=== PATIENT | female | born 1985 | race Hispanic/Latino ===

== ENCOUNTER 2016-12-25 16:20 | Emergency (ER) | payer SELFPAY ==
[~2016-12-25] VITALS: Ht 157.5 cm; Wt 77.0 kg
[~2016-12-25 16:20] MED LIST: IBUPROFEN600 MG PO; KEFLEX500 MG PO; LORTAB 5-325 MG1 TAB PO; LORTAB 7.57.5 MG PO; LORTAB5 OR; MACROBID100 MG OR; MOTRIN800 MG PO; NAPROSYN500 MG OR; NO HOME MEDS; PRENATA4 PO; PRENATAL1 TAB OR; PREVACID30 M2 PO; PROTONIX40 MG PO; TRAMADOL HCL50 MG OR; ULTRAM50 MG OR; ZOFRAN ODT4 MG OR
[2016-12-25 17:10] LABS: HEMATOCRIT 38.8 % (37.0-47.0); HEMOGLOBIN 13.4 g/dl (12.0-16.0); IMMATURE GRANULOCYTES 0.5 % (0.0-1.0); MEAN CELL VOLUME 84.3 fL CALC (80.0-100.0); MEAN CORPUSCULAR HGB 29.1 pG CALC (26.0-32.0); MEAN CORPUSCULAR HGB CONC 34.5 g/L CALC (32.0-36.0); NEUT# 4.15 thou/uL (2.00-7.15); RED BLOOD COUNT 4.6 mill/uL (4.20-5.60); RED CELL DISTRI WIDTH 12.2 % (11.5-15.5)
[2016-12-25 17:16] LABS: ALBUMIN 4.7 g/dL (3.2-5.0); ALKALINE PHOSPHATASE 109 u/l (38-126); ANION GAP 17 (6-22 (CALC)); BILIRUBIN, TOTAL 0.3 mg/dL (0.0-1.4); BUN 12 mg/dL (7-17); BUN/CREATININE RATIO 26 (12-20 (CALC)); CARBON DIOXIDE 24 mmol/l (22-30); CHLORIDE 102 mmol/l (95-108); CREATININE 0.5 mg/dL (0.5-1.0); GFR > 60 ML/MIN (>=60 (CALC)); GFR FOR AFR.AMER. > 60 ML/MIN (>=60 (CALC)); GLUCOSE 93 mg/dL (65-105); POTASSIUM 3.7 mmol/l (3.5-5.1); SGOT/AST 49 u/l (14-36); SGPT/ALT 30 u/l (9-52); SODIUM 139 mmol/l (137-146); TOTAL PROTEIN 8.2 g/dL (6.3-8.2)
[2016-12-25 17:27] LABS: MYOGLOBIN 13 ng/mL (0 - 62)
[2016-12-25] MEDS ORDERED: NAPROSYN500 MG PO (17:38)
[2016-12-25] MEDS ORDERED: FLEXERIL PO (17:38)
[2016-12-25 17:45] VITALS: BP 104/70
== END 2016-12-25 17:49 | disposition home or self-care (01) | DRG 313 ==
LOC: ED 16:20
PROVIDERS: Emergency Medicine
DX: R07.89 Other chest pain (principal)

== ENCOUNTER 2017-11-25 19:18 | Emergency (ER) | payer SELFPAY ==
[~2017-11-25] VITALS: Ht 157.5 cm; Wt 81.0 kg
[~2017-11-25 19:18] MED LIST changes: +FLEXERIL PO; +NAPROSYN500 MG PO
[2017-11-25 20:03] LABS: HEMATOCRIT 39.4 % (37.0-47.0); HEMOGLOBIN 13.2 g/dl (12.0-16.0); IMMATURE GRANULOCYTES 0.3 % (0.0-1.0); MEAN CELL VOLUME 87.6 fL CALC (80.0-100.0); MEAN CORPUSCULAR HGB 29.3 pG CALC (26.0-32.0); MEAN CORPUSCULAR HGB CONC 33.5 g/L CALC (32.0-36.0); NEUT# 3.46 thou/uL (2.00-7.15); RED BLOOD COUNT 4.5 mill/uL (4.20-5.60); RED CELL DISTRI WIDTH 12.6 % (11.5-15.5)
[2017-11-25 20:05] LABS: URINE BILIRUBIN - DIPSTICK NEGATIVE (NEGATIVE); URINE BLOOD DIPSTICK NEGATIVE (NEGATIVE); URINE CLARITY CLEAR; URINE COLOR YELLOW; URINE GLUCOSE - DIPSTICK NEGATIVE (NEGATIVE); URINE KETONE NEGATIVE (NEGATIVE); URINE LEUK ESTERASE NEGATIVE (NEGATIVE); URINE NITRITE - DIPSTICK NEGATIVE (Negative); URINE PROTEIN - DIPSTICK NEGATIVE (NEG-TRACE); URINE SPECIFIC GRAVITY 1.025; URINE UROBILINOGEN - DIPSTICK 0.2 E.U./dL (0.2)
[2017-11-25 20:16] LABS: ALBUMIN 4.7 g/dL (3.2-5.0); ALKALINE PHOSPHATASE 90 u/l (38-126); AMYLASE 39 u/l (30-110); ANION GAP 17 (6-22 (CALC)); BILIRUBIN, TOTAL 0.2 mg/dL (0.0-1.4); BUN 10 mg/dL (7-17); BUN/CREATININE RATIO 20 (12-20 (CALC)); CARBON DIOXIDE 27 mmol/l (22-30); CHLORIDE 104 mmol/l (95-108); CREATININE 0.5 mg/dL (0.5-1.0); GFR > 60 ML/MIN (>=60 (CALC)); GFR FOR AFR.AMER. > 60 ML/MIN (>=60 (CALC)); LIPASE 92 u/l (23-300); POTASSIUM 4.3 mmol/l (3.5-5.1); SGOT/AST 27 u/l (14-36); SGPT/ALT 38 u/l (9-52); SODIUM 143 mmol/l (137-146); TOTAL PROTEIN 7.7 g/dL (6.3-8.2)
[2017-11-25] MEDS ORDERED: TYLENOL & COD12.5 ML PO (21:34)
[2017-11-25] MEDS ORDERED: PERCOCET 5/325M1 TAB PO (21:58)
[2017-11-25 22:17] VITALS: BP 125/72
== END 2017-11-25 22:18 | disposition home or self-care (01) | DRG 392 ==
LOC: ED 19:18
PROVIDERS: Emergency Medicine
DX: R10.31 Right lower quadrant pain (principal); R10.9 Unspecified abdominal pain; R30.0 Dysuria
CPT/HCPCS: Q9967

== ENCOUNTER 2018-02-21 19:49 | Emergency (ER) | payer SELFPAY ==
[~2018-02-21] VITALS: Ht 157.5 cm; Wt 82.6 kg
[~2018-02-21 19:49] MED LIST changes: +PERCOCET 5/325M1 TAB PO; +TYLENOL & COD12.5 ML PO
[2018-02-21 20:17] LABS: URINE BILIRUBIN - DIPSTICK NEGATIVE (NEGATIVE); URINE BLOOD DIPSTICK LARGE (NEGATIVE); URINE COLOR YELLOW; URINE GLUCOSE - DIPSTICK NEGATIVE (NEGATIVE); URINE KETONE NEGATIVE (NEGATIVE); URINE LEUK ESTERASE SMALL (NEGATIVE); URINE NITRITE - DIPSTICK POSITIVE (Negative); URINE PH 6.5 (4.5-8.0); URINE PROTEIN - DIPSTICK TRACE mg/dL (NEG-TRACE); URINE SPECIFIC GRAVITY 1.015; URINE UROBILINOGEN - DIPSTICK 0.2 E.U./dL (0.2)
[2018-02-21 20:18] LABS: URINE BACTERIA FEW hpf; URINE CLARITY TURBID; URINE RBC TNTC RBC/hpf (0-5); URINE SQUAMOUS EPITHELIAL CELL FEW EPI/hpf (0-FEW)
[2018-02-21] MEDS ORDERED: BACTRIM DS1 TAB PO (20:30)
[2018-02-21 20:55] VITALS: BP 119/74
== END 2018-02-21 20:55 | disposition home or self-care (01) | DRG 690 ==
LOC: ED 19:49
PROVIDERS: Family Medicine
DX: N39.0 Urinary tract infection, site not specified (principal); B96.20 Unspecified Escherichia coli [E. coli] as the cause of diseases classified elsewhere; Z87.440 Personal history of urinary (tract) infections

== ENCOUNTER 2018-02-24 16:30 | Emergency (ER) | payer SELFPAY ==
[~2018-02-24] VITALS: Ht 157.5 cm; Wt 82.0 kg
[~2018-02-24 16:30] MED LIST changes: +BACTRIM DS1 TAB PO
[2018-02-24 17:34] LABS: URINE BILIRUBIN - DIPSTICK NEGATIVE (NEGATIVE); URINE BLOOD DIPSTICK LARGE (NEGATIVE); URINE COLOR YELLOW; URINE GLUCOSE - DIPSTICK NEGATIVE (NEGATIVE); URINE KETONE TRACE mg/dL (NEGATIVE); URINE PROTEIN - DIPSTICK 100 mg/dL (NEG-TRACE); URINE SPECIFIC GRAVITY 1.025; URINE UROBILINOGEN - DIPSTICK 0.2 E.U./dL (0.2)
[2018-02-24 17:35] LABS: URINE CLARITY SL CLOUDY; URINE LEUK ESTERASE MODERATE (NEGATIVE); URINE NITRITE - DIPSTICK POSITIVE (Negative)
[2018-02-24 17:40] LABS: HEMATOCRIT 38.6 % (37.0-47.0); HEMOGLOBIN 13.1 g/dl (12.0-16.0); IMMATURE GRANULOCYTES 0.5 % (0.0-1.0); MEAN CELL VOLUME 86.4 fL CALC (80.0-100.0); MEAN CORPUSCULAR HGB 29.3 pG CALC (26.0-32.0); MEAN CORPUSCULAR HGB CONC 33.9 g/L CALC (32.0-36.0); NEUT# 8.72 thou/uL (2.00-7.15); RED BLOOD COUNT 4.47 mill/uL (4.20-5.60); RED CELL DISTRI WIDTH 12.4 % (11.5-15.5)
[2018-02-24 17:42] LABS: URINE RBC 25-50 RBC/hpf (0-5); URINE SQUAMOUS EPITHELIAL CELL FEW EPI/hpf (0-FEW); URINE WBC 50-100 WBC/hpf (0-5)
[2018-02-24 17:57] LABS: ALBUMIN 4.8 g/dL (3.2-5.0); ALKALINE PHOSPHATASE 99 u/l (38-126); ANION GAP 14 (6-22 (CALC)); BILIRUBIN, TOTAL 0.3 mg/dL (0.0-1.4); BUN 11 mg/dL (7-17); BUN/CREATININE RATIO 24 (12-20 (CALC)); CARBON DIOXIDE 24 mmol/l (22-30); CHLORIDE 103 mmol/l (95-108); CREATININE 0.4 mg/dL (0.5-1.0); GFR > 60 ML/MIN (>=60 (CALC)); GFR FOR AFR.AMER. > 60 ML/MIN (>=60 (CALC)); POTASSIUM 4.2 mmol/l (3.5-5.1); SGOT/AST 26 u/l (14-36); SGPT/ALT 40 u/l (9-52); SODIUM 136 mmol/l (137-146); TOTAL PROTEIN 8.1 g/dL (6.3-8.2)
[2018-02-24] MEDS ORDERED: IBUPROFEN600 MG PO (18:49)
[2018-02-24] MEDS ORDERED: PYRIDIUM200 MG PO (18:49)
[2018-02-24 18:57] VITALS: BP 122/70
== END 2018-02-24 19:00 | disposition home or self-care (01) | DRG 690 ==
LOC: ED 16:30
DX: N10 Acute pyelonephritis (principal); B96.20 Unspecified Escherichia coli [E. coli] as the cause of diseases classified elsewhere; R10.9 Unspecified abdominal pain; R11.0 Nausea; R30.0 Dysuria; R35.0 Frequency of micturition

== ENCOUNTER 2018-04-07 13:48 | Emergency (ER) | payer SELFPAY ==
[~2018-04-07] VITALS: Ht 157.5 cm; Wt 80.0 kg
[~2018-04-07 13:48] MED LIST changes: +PYRIDIUM200 MG PO
[2018-04-07 15:06] VITALS: BP 130/87
== END 2018-04-07 15:10 | disposition home or self-care (01) | DRG 761 ==
LOC: ED 13:48
DX: N94.6 Dysmenorrhea, unspecified (principal)

== ENCOUNTER 2019-06-11 14:11 | Emergency (ER) | payer SELFPAY ==
[~2019-06-11] VITALS: Ht 157.5 cm; Wt 100.0 kg
[2019-06-11] MEDS ORDERED: BACTRIM DS1 TAB PO (16:07)
[2019-06-11] MEDS ORDERED: AMOXICILLIN500 M2 PO (16:07)
[2019-06-11 16:43] VITALS: BP 122/63
== END 2019-06-11 16:43 | disposition home or self-care (01) | DRG 153 ==
LOC: ED 14:11
DX: J02.0 Streptococcal pharyngitis (principal); M53.3 Sacrococcygeal disorders, not elsewhere classified

== ENCOUNTER 2019-10-24 | Emergency (ER) | payer SELFPAY ==
[~2019-10-24] MED LIST changes: +AMOXICILLIN500 M2 PO
[2019-10-24 19:19] LABS: URINE BILIRUBIN - DIPSTICK NEGATIVE (NEGATIVE); URINE BLOOD DIPSTICK NEGATIVE (NEGATIVE); URINE COLOR YELLOW; URINE GLUCOSE - DIPSTICK NEGATIVE (NEGATIVE); URINE KETONE NEGATIVE (NEGATIVE); URINE LEUK ESTERASE NEGATIVE (NEGATIVE); URINE NITRITE - DIPSTICK NEGATIVE (Negative); URINE PROTEIN - DIPSTICK NEGATIVE (NEG-TRACE); URINE UROBILINOGEN - DIPSTICK 0.2 E.U./dL (0.2)
[2019-10-24 19:31] LABS: URINE AMORPH SEDIMENT MANY hpf (NONE-FEW); URINE SQUAMOUS EPITHELIAL CELL FEW EPI/hpf (0-FEW)
== END 2019-10-24 21:13 | disposition home or self-care (01) | DRG 103 ==
DX: R51 Headache (principal)

== ENCOUNTER 2022-08-31 12:28 | Emergency (ER) | payer SELFPAY ==
[~2022-08-31] VITALS: Ht 157.5 cm; Wt 90.7 kg
[2022-08-31 13:56] VITALS: BP 146/86
[2022-08-31] MEDS ORDERED: TAM75CAP PO (13:59)
[2022-08-31] MEDS ORDERED: ZOFRAN4 MG/TAB PO (14:01)
== END 2022-08-31 14:09 | disposition home or self-care (01) | DRG 195 ==
LOC: ED 12:28
DX: J10.1 Influenza due to other identified influenza virus with other respiratory manifestations (principal)

== ENCOUNTER 2023-04-27 17:25 | Emergency (ER) | payer SELFPAY ==
[~2023-04-27] VITALS: Ht 157.5 cm; Wt 94.6 kg
[~2023-04-27 17:25] MED LIST changes: +TAM75CAP PO; +ZOFRAN4 MG/TAB PO
[2023-04-27 18:30] VITALS: BP 150/100
[2023-04-27 18:31] LABS: BASO% 0.5 % (0-3); EOS% 2.3 % (0-8); HEMATOCRIT 38.1 % (37.0-47.0); HEMOGLOBIN 12.7 g/dl (12.0-16.0); IMMATURE GRANULOCYTES 0.3 % (0.0-5.0); LYMPH% 41.9 % (15-41); MEAN CORPUSCULAR HGB 28.3 pG CALC (26.0-32.0); MEAN CORPUSCULAR HGB CONC 33.3 g/dL CAL (32.0-36.0); MONO% 5.2 % (2-13); NEUT# 5.1 thou/uL (2.00-7.15); NEUT% 49.8 % (42-76); RED BLOOD COUNT 4.48 mill/uL (4.20-5.60); RED CELL DISTRI WIDTH 13.1 % (11.5-15.5)
[2023-04-27 18:38] LABS: PROTHROMBIN TIME 9.4 SECONDS (9.0-12.5)
[2023-04-27 18:40] LABS: ALBUMIN 4.6 g/dL (3.2-5.0); ALKALINE PHOSPHATASE 75 u/l (38-126); ANION GAP 13 (6-22 (CALC)); BILIRUBIN, TOTAL 0.4 mg/dL (0.02-1.3); BUN 13 mg/dL (7-17); BUN/CREATININE RATIO 26 (12-20 (CALC)); CALCULATED LDLCHOLESTEROL 124 mg/dL (62-129 (CALC)); CARBON DIOXIDE 25 mmol/l (22-30); CHLORIDE 103 mmol/l (95-108); CHOLESTEROL HDL RATIO 4.6 (<4.4 (CALC)); CREATININE 0.5 mg/dL (0.5-1.0); GFR FOR AFR.AMER. > 60 ML/MIN (>=60 (CALC)); GFR OTHER RACES > 60 ML/MIN (>=60 (CALC)); HDL CHOLESTEROL 47 mg/dL (39.0-59.0); SGOT/AST 40 u/l (14-36); SODIUM 137 mmol/l (137-146); TOTAL CHOLESTEROL 213 mg/dl (0-199); TOTAL PROTEIN 8.3 g/dL (6.3-8.2); TOTAL TRIGLYCERIDES 214 mg/dl (0-149); VLDL CHOLESTROL 43 mg/dl (1-41 (CALC))
[2023-04-27 19:31] VITALS: BP 148/100
[2023-04-27 19:38] VITALS: BP 128/88
[2023-04-27 19:47] LABS: URINE BILIRUBIN - DIPSTICK Negative (NEGATIVE); URINE BLOOD DIPSTICK Trace-intact (NEGATIVE); URINE GLUCOSE - DIPSTICK Negative (NEGATIVE); URINE KETONE Negative (NEGATIVE); URINE LEUK ESTERASE Negative (NEGATIVE); URINE NITRITE - DIPSTICK Negative (Negative); URINE PROTEIN - DIPSTICK Negative (NEG-TRACE); URINE SPECIFIC GRAVITY 1.015; URINE UROBILINOGEN - DIPSTICK 0.2 E.U./dL (0.2)
[2023-04-27 19:48] LABS: URINE COLOR Yellow
[2023-04-27 20:01] VITALS: BP 131/91
[2023-04-27 20:28] VITALS: BP 131/91
== END 2023-04-28 01:12 | disposition left against medical advice (07) | DRG 103 ==
LOC: ED 17:25 → ED-I 19:30 → ED 04-28 01:12
PROVIDERS: Family Medicine
DX: G44.59 Other complicated headache syndrome (principal); R20.0 Anesthesia of skin; F41.9 Anxiety disorder, unspecified; R25.8 Other abnormal involuntary movements; Z53.29 Procedure and treatment not carried out because of patient's decision for other reasons
CPT/HCPCS: Q9967

== ENCOUNTER 2024-03-10 15:27 | Emergency (ER) | payer SELFPAY ==
[~2024-03-10] VITALS: Ht 157.5 cm; Wt 88.0 kg
[2024-03-10] MEDS ORDERED: DEXAMETHASONE SOD. PHOSPHATE 10 MG/ML VIAL IM ONE (15:55)
[2024-03-10] MEDS ORDERED: IBUPROFEN 100 MG/5 ML PO ONE (15:55)
[2024-03-10] MEDS ORDERED: PENICILLIN G BENZATHINE 1.2 MU/2 ML SYR IM STA (16:42)
[2024-03-10] MEDS ORDERED: DEXAMETHASON6 MG PO (17:06)
[2024-03-10] MEDS ORDERED: TYLENOL & COD12.5 ML PO (17:07)
[2024-03-10 17:16] VITALS: BP 132/82
== END 2024-03-10 17:15 | disposition home or self-care (01) | DRG 153 ==
LOC: ED 15:27
DX: J02.0 Streptococcal pharyngitis (principal)
CPT/HCPCS: J0561